=== PATIENT | male | born 1995 | race Hispanic/Latino ===

== ENCOUNTER 2017-10-31 15:13 | Emergency (ER) | payer SELFPAY ==
[2017-10-31] MEDS ORDERED: TETRACAINE HCL 0.5% 4 ML OPHTH SOLN ONE (15:31)
== END 2017-10-31 15:44 | disposition home or self-care (01) ==
LOC: EDH 15:13
DX: S05.02XA Injury of conjunctiva and corneal abrasion without foreign body, left eye, initial encounter (principal); H10.9 Unspecified conjunctivitis; Z72.0 Tobacco use; X58.XXXA Exposure to other specified factors, initial encounter; Y93.89 Activity, other specified; Y92.89 Other specified places as the place of occurrence of the external cause; Y99.8 Other external cause status

== ENCOUNTER 2018-04-10 01:51 | Emergency (ER) | payer OTHER ==
[2018-04-10] MEDS ORDERED: FAMOTIDINE/PF 20 MG/2 ML VIAL IV ONE (02:26)
[2018-04-10 03:01] LABS: BASOPHILS % (AUTO) 0.4 % (0.0-5.0); EOSINOPHILS % (AUTO) 1.8 % (0.0-8.0); HEMATOCRIT 42.4 % (42-54); LYMPHOCYTES % (AUTO) 19.8 % (21.0-51.0); MEAN CORPUSCULAR HEMOGLOBIN 29.5 pg (27.0-33.0); MEAN CORPUSCULAR HGB CONC 34.5 g/dL (32.0-36.0); MEAN CORPUSCULAR VOLUME 85.5 fL (79-99); PLATELET COUNT (AUTO) 227 K/uL (130-400); RED BLOOD CELL COUNT(AUTO) 4.96 MIL/uL (4.50-6.20); WHITE BLOOD COUNT (AUTO) 8.5 K/uL (4.8-10.8)
[2018-04-10 03:02] LABS: APPEARANCE,URINE Clear (CLEAR); BILIRUBIN,URINE Negative (NEGATIVE); COLOR,URINE Yellow (YELLOW); GLUCOSE, URINE (UA) Negative (NEGATIVE); KETONES,URINE Negative (NEGATIVE); LEUKOCYTE ESTERASE ,URINE Negative (NEGATIVE); NITRATE,URINE Negative (NEGATIVE); OCCULT BLOOD,URINE Negative (NEGATIVE); PROTEIN,URINE Negative (NEGATIVE); UROBILINOGEN,URINE 0.2 mg/dL (0.2-1.0)
[2018-04-10 03:10] LABS: POTASSIUM 3.4 mmol/L (3.5-5.1)
[2018-04-10 03:17] LABS: ALBUMIN 4.4 g/dL (3.5-5.0); BILIRUBIN,TOTAL 0.3 mg/dL (0.2-1.0); TOTAL PROTEIN, SERUM 7.9 g/dL (6.0-8.3)
== END 2018-04-10 02:56 | disposition home or self-care (01) ==
LOC: EDH 01:51
DX: R10.13 Epigastric pain (principal); R11.10 Vomiting, unspecified; Z72.0 Tobacco use
CPT/HCPCS: 36415; 80053; 81003; 83690; 85025; 96374; 99284; J3490

== ENCOUNTER 2019-01-21 12:06 | Emergency (ER) | payer SELFPAY ==
[2019-01-21] MEDS ORDERED: IBUPROFEN 600 MG TABLET ONE (13:31)
== END 2019-01-21 13:41 | disposition home or self-care (01) ==
LOC: EDH 12:06
DX: S62.91XA Unspecified fracture of right hand, initial encounter for closed fracture (principal); W50.0XXA Accidental hit or strike by another person, initial encounter; Y93.71 Activity, boxing; Y92.89 Other specified places as the place of occurrence of the external cause; Y99.8 Other external cause status
CPT/HCPCS: 29125; 73130

== ENCOUNTER 2023-04-18 00:21 | Emergency (ER) | payer OTHER ==
[~2023-04-18] VITALS: Ht 175.3 cm; Wt 88.9 kg
[2023-04-18 00:53] LABS: SARS-CoV-2, RNA, NAAT NEGATIVE SARS CoV-2 (NEGATIVE)
[2023-04-18 00:55] LABS: RAPID GROUP A STREP positive (NEGATIVE)
[2023-04-18 00:59] LABS: INFLUENZA TYPE A Negative For Type A (NEGATIVE); INFLUENZA TYPE B Negative For Type B (NEGATIVE)
[2023-04-18] MEDS ORDERED: CEFTRIAXONE 2GM VIAL IJ ONE (02:00)
[2023-04-18] MEDS ORDERED: KETOROLAC 30MG VIAL (30MG/ML) IM ONE (02:00)
[2023-04-18 02:20] VITALS: BP 124/78; PULSE 78; RESP 16; O2SAT 99
== END 2023-04-18 02:21 | disposition home or self-care (01) ==
LOC: EDH 00:21
DX: J03.90 Acute tonsillitis, unspecified (principal); H92.01 Otalgia, right ear; Z20.822 Contact with and (suspected) exposure to COVID-19
CPT/HCPCS: 99283; 87635; 87880; 87804 ×2; 96372; C9803; J0696; J1885